=== PATIENT | female | born 1970 | race Caucasian/White ===

== ENCOUNTER 2017-07-27 19:20 | Emergency (ER) | payer OTHER ==
--- NOTE | 2017-07-27 20:15 | RAD ---
EXAM: LEFT FOOT THREE VIEWS 07/27/17 HISTORY: Injury. Fall. Pain. FINDINGS: There is soft tissue swelling in the mid and forefoot. Joint spaces are preserved. Lisfranc alignmen t appears to be disrupted as there is a fracture at the base of the second metatarsal. Additional fr actures are not appreciated. IMPRESSION: 1. Fracture of the base of the second metatarsal. Associated Lisfranc injury. 2. Soft tissue swelling. POS: [facility]
--- NOTE | 2017-07-27 21:01 | RAD ---
EXAM: LEFT ANKLE THREE VIEWS 07/27/17 HISTORY: Injury and pain. COMPARISON: None. FINDINGS: Three views left ankle demonstrate what appears to be an avulsive component of a fracture emanating from the lateral aspect of the midfoot. This component is difficult to appreciate on the foot radiog raph. Component is best appreciated on the AP projection. With regard to the ankle, no fracture. No cortical irregularity or periosteal reaction. Joint space is preserved. IMPRESSION: 1. No ankle fracture. 2. Avulsive fracture emanating from the lateral aspect of the left foot, only appreciated on th e ankle radiograph series. POS: [facility]
== END 2017-07-27 20:32 | disposition home or self-care (01) ==
LOC: SCSER 19:20
DX: S92.322A Displaced fracture of second metatarsal bone, left foot, initial encounter for closed fracture (principal); W03.XXXA Other fall on same level due to collision with another person, initial encounter
CPT/HCPCS: 29515